=== PATIENT | male | born 1995 | race Caucasian/White ===

== ENCOUNTER 2021-01-13 04:41 | Emergency (ER) | payer MEDICAID, OTHER ==
[~2021-01-13] VITALS: Ht 185.4 cm; Wt 63.2 kg
[2021-01-13] MEDS ORDERED: ONDANSETRON 2MG/ML, 2ML ONE (05:05)
[2021-01-13] MEDS ORDERED: FAMOTIDINE 20 MG/2 ML ONE (05:06)
[2021-01-13] MEDS ORDERED: LORazepam 2 MG/ML, 1ML ONE (05:06)
[2021-01-13 05:17] LABS: BASOPHILS % (AUTO) 0 % (0-1); EOSINOPHILS % (AUTO) 0 % (1-7); LYMPHOCYTES % (AUTO) 4 % (22-44); MEAN CORPUSCULAR HEMOGLOBIN 34.4 pg (27.5-34.5); MEAN CORPUSCULAR HGB CONC 34.6 g/dL (33.2-36.2); MEAN PLATELET VOLUME 6.3 fL (7.4-10.4); MONOCYTES % (AUTO) 4 % (2-9); NEUTROPHILS % (AUTO) 91 % (42-75); PLATELET COUNT 235 x10^3/uL (130-400); RED BLOOD COUNT 4.68 x10^6/uL (4.38-5.82); RED CELL DISTRIBUTION WIDTH 13.7 % (9.4-14.8)
[2021-01-13 05:20] LABS: MD NO
[2021-01-13 05:29] LABS: ALBUMIN 4.1 g/dL (3.4-5.0); ANION GAP 16 mmol/L (5-15); CALCIUM 8.6 mg/dL (8.5-10.1); CHLORIDE 107 mmol/L (98-107)
[2021-01-13] MEDS ORDERED: FAMOTIDINE 20 MG/2 ML IVPush ONE (05:30)
[2021-01-13] MEDS ORDERED: THIAMINE 100 MG in SODIUM CHLORIDE 0.9% 50 ML IVPB ONE (05:30)
[2021-01-13] MEDS ORDERED: LORazepam 2 MG/ML, 1ML IVPush ONE (05:30)
[2021-01-13] MEDS ORDERED: SODIUM CHLORIDE 0.9% 1,000ML IVBOLUS ONE (05:30)
[2021-01-13] MEDS ORDERED: ONDANSETRON 2MG/ML, 2ML IVPush ONE (05:30)
[2021-01-13 05:33] LABS: ALANINE AMINOTRANSFERASE 28 U/L (12-78); ALKALINE PHOSPHATASE 70 U/L (45-117); CREATININE 1.28 mg/dL (0.7-1.3); TOTAL PROTEIN 6.9 g/dL (6.4-8.2)
--- NOTE | 2021-01-13 05:39 | NUR ---
PT STATE "HE HAS BEEN SAD THAT HIS GRANDFATHER PASSED FRM COVID AND HIS ONLY WAY HE KNEW HOW TO COPE WITH IT WAS TO DRINK AND DRINK AND DRINK" PT ADMITED TO DRINKING ALL DAY FOR 5 DAYS STRAIGHT. PT HAS C/O ABD PAIN WITH N/V FOR THE LAST 1-2 DAYS
[2021-01-13] MEDS ORDERED: POTASSIUM CHLORIDE 20 MEQ TAB.ER.PRT ONE (05:50)
[2021-01-13] MEDS ORDERED: SODIUM CHLORIDE FLUSH 10ML SYR IVF ONE (06:00)
[2021-01-13 06:17] LABS: MICROSCOPIC INDICATED
[2021-01-13] MEDS ORDERED: POTASSIUM CHLORIDE 20 MEQ TAB.ER.PRT PO ONE (06:30)
[2021-01-13 07:10] VITALS: BP 102/57
--- NOTE | 2021-01-13 07:14 | NUR ---
Patient given discharge instructions and they have confirmed that they understand the instructions. Patient ambulatory with steady gait.
== END 2021-01-13 07:14 | disposition home or self-care (01) ==
LOC: ED 05:46
DX: R10.13 Epigastric pain (principal); R11.2 Nausea with vomiting, unspecified; F10.129 Alcohol abuse with intoxication, unspecified; F12.129 Cannabis abuse with intoxication, unspecified; Y90.0 Blood alcohol level of less than 20 mg/100 ml
CPT/HCPCS: 36415; 80053; 81001; 82800; 83690; 85025; 93005; 96365; 96375; 99284; J2060; J2405; J3411; J7030